=== PATIENT | female | born 1960 | race Hispanic/Latino ===

== ENCOUNTER → 2017-11-26 | Outpatient (CLI) | payer OTHER | END | disposition home or self-care (01) | LOC: OIH 14:08 | PROVIDERS: ATTEND Family Medicine | DX: R07.9 Chest pain, unspecified (principal) | CPT/HCPCS: 71046 ==

== ENCOUNTER → 2018-08-04 | Outpatient (CLI) | payer OTHER | END | disposition home or self-care (01) | LOC: OIH 15:59 | PROVIDERS: ATTEND Family Medicine | DX: M19.011 Primary osteoarthritis, right shoulder (principal); M19.012 Primary osteoarthritis, left shoulder | CPT/HCPCS: 73060 ==

== ENCOUNTER → 2022-04-30 | Outpatient (CLI) | payer OTHER | END | disposition home or self-care (01) | LOC: RAH 12:39 | PROVIDERS: ATTEND Family Medicine | DX: E04.2 Nontoxic multinodular goiter (principal); Z85.850 Personal history of malignant neoplasm of thyroid; R22.1 Localized swelling, mass and lump, neck | CPT/HCPCS: 76536 ==

== ENCOUNTER → 2022-05-22 | Outpatient (CLI) | payer OTHER ==
[~2022-05-22] MED LIST: IOHEXOL 350 MG/ML 100ML INFUS..BTL IV ONE; IOHEXOL-350 50ML VIAL IV ONE
== END | disposition home or self-care (01) ==
LOC: RAH 09:42
PROVIDERS: ATTEND Family Medicine
DX: R22.1 Localized swelling, mass and lump, neck (principal)
CPT/HCPCS: 70492; Q9967

== ENCOUNTER → 2023-01-26 | Outpatient (CLI) | payer OTHER | END | disposition home or self-care (01) | LOC: RAH 09:58 | PROVIDERS: ATTEND Otolaryngology Plastic Surgery within the Head & Neck | DX: E04.2 Nontoxic multinodular goiter (principal) | CPT/HCPCS: 76536 ==

== ENCOUNTER → 2024-03-31 | Outpatient (CLI) | payer OTHER | END | disposition home or self-care (01) | LOC: RAH 10:41 | PROVIDERS: ATTEND Family Medicine | DX: R06.2 Wheezing (principal) | CPT/HCPCS: 71046 ==

== ENCOUNTER → 2025-03-19 | Outpatient (CLI) | payer OTHER | END | disposition home or self-care (01) | LOC: RAH 13:02 | PROVIDERS: ATTEND Internal Medicine Cardiovascular Disease | DX: Z13.6 Encounter for screening for cardiovascular disorders (principal) | CPT/HCPCS: 75571 ==